=== PATIENT | female | born 1980 | race American Indian/Alaskan Native ===

== ENCOUNTER 2017-03-29 01:28 | Emergency (ER) | payer OTHER ==
[2017-03-29 01:56] VITALS: BP 128/89
[2017-03-29] MEDS ORDERED: TYLENOL ONE (01:57)
[2017-03-29] MEDS ORDERED: TYLENOL PO ONE (02:58)
--- NOTE | 2017-03-29 03:45 | Cat Scan Report ---
FINAL REPORT EXAM: CT FACIAL BONES WO CON HISTORY: facial swelling TECHNIQUE: Routine axial imaging was obtained of the facial bones without IV contrast with sagittal and coronal reconstructions. FINDINGS: There is non specific subcutaneous edema overlying the right cheek area extending to the right preseptal area. This extends along body of the right side of the mandible. There is no evidence of abscess or lymphadenopathy. The sinuses reveal mild mucosal thickening in the right maxillary and right ethmoidal air cells. There is no evidence of osteomyelitis. The orbital rims and floors appear intact. The nasal bones and zygomatic arches appear normal. The mandible appears normal. IMPRESSION: Non specific cellulitis overlying the right side of the face as described. No evidence of osteomyelitis or abscess. Patchy right maxillary and right ethmoidal sinusitis.
[2017-03-29] MEDS ORDERED: DELTASONE PO ONE (05:49)
[2017-03-29] MEDS ORDERED: TYLENOL/CODEINE PO ONE (05:49)
--- NOTE | 2017-03-29 05:49 | Emergency Department Report ---
HPI - General Chief Complaint: Dental/Oral Time Seen by Provider: 03/29/17 05:33 - [facility] HPI: The patient is a 36-year-old female who presents to ED complaining of 8/10 pain in the right side of her mouth x 3 days . Patient states that the pain started 5 days ago she was eating a pretzel and accidentally one of her upper tooth got broken and has increased in severity over the last 2 days with some facial swelling. The pain is exacerbated by eating and opening of the mouth. Patient states that it radiates towards ear and right facial cheeks. Patient describes a as a throbbing, pressure-like sensation. Patient states otherwise well and has no other complaints. Patient has had no fevers and no chills. No chest pain, no shortness of breath. No abdominal pain. No shortness of breath or recent trauma to the face. ED Past Medical Hx - Past Medical History Previous Medical History?: Yes Hx Hypertension: Yes Additional medical history: tacycardia - Surgical History Past Surgical History?: Yes Hx Cholecystectomy: Yes Additional Surgical History: hysterectomy, breast wrist - Social History Smoking Status: Former Smoker Substance Use Type: Alcohol, Marijuana - Medications Home Medications: Home Medications Medication Instructions Recorded Confirmed Last Taken Type Acetaminophen/Codeine [Tylenol 1 tab PO Q6H PRN #12 tab 03/29/17 Unknown Rx /Codeine # 3 tab] Amoxicillin/Potassium Clav 1 each PO BID #20 tablet 03/29/17 Unknown Rx [Augmentin 875-125 Tablet] Ibuprofen [Motrin] 800 mg PO Q8HR PRN #30 tablet 03/29/17 Unknown Rx ED Review of Systems ROS: Stated complaint: SWELLING LT FACE; TOOTHACHE Other details as noted in HPI Constitutional: denies: chills, fever Eyes: denies: eye pain, eye discharge, vision change ENT: dental pain. denies: ear pain, throat pain Respiratory: denies: cough, shortness of breath, wheezing Cardiovascular: denies: chest pain, palpitations Endocrine: no symptoms reported Gastrointestinal: denies: abdominal pain, nausea, diarrhea Genitourinary: denies: urgency, dysuria, discharge Musculoskeletal: denies: back pain, joint swelling, arthralgia Skin: denies: rash, lesions Neurological: denies: headache, weakness, paresthesias Psychiatric: denies: anxiety, depression Hematological/Lymphatic: denies: easy bleeding, easy bruising Physical Exam - Physical Exam Vital Signs: Vital Signs 03/29/17 03/29/17 01:49 02:00 Temperature 97.7 F Pulse Rate 85 Respiratory 18 18 Rate Blood Pressure 128/89 O2 Sat by Pulse 97 Oximetry Physical Exam: GENERAL: Alert and oriented x3, no apparent distress, Normal Gait, atraumatic. HEAD: Head is normocephalic and a-traumatic. right cheeck swelling, tender to palpation, non erythematous EYES: Extra ocular muscles are intact. Pupils are equal, round, and reactive to light and accommodation. EARS: symetrical, atraumatic, non tender, ear canal clear and moderate cerumen, tympanic membrance non inflamed. gross auditory nml bilaterally. NOSE: Nose symetrical, Nontender,Nares appeared normal. MOUTH:Mouth is well hydrated and without lesions. Tonsils nonerythematous or swollen, Uvula midline, Tongue not elevated. Mucous membranes are moist. Posterior pharynx clear, no exudate or lesions. Patent airways. partially broken tooth number 4, dental caries visualized, gums underneath tender to palpation, no gingival enlargement. NECK: Supple. Non edematous,No lymphadenopathy or thyromegaly. LUNGS: Symetrical with respiration, No wheezing, no rales or crackles, CTAB. HEART: S1, S2 present, regular rate and rhythm without murmur, no rubs, no gallops. Non tender to palpation NEUROLOGIC: The patient is cooperative with no focal neurologic deficits. Cranial nerves II through XII are grossly intact. Normal speech. , No loss of sensation, SKIN: Warm and dry, No lesions, No ulceration or induration present. ED Course Vital Signs 03/29/17 03/29/17 01:49 02:00 Temperature 97.7 F Pulse Rate 85 Respiratory 18 18 Rate Blood Pressure 128/89 O2 Sat by Pulse 97 Oximetry ED Medical Decision Making - Radiology Data Radiology results: report reviewed, image reviewed FINAL REPORT EXAM: CT FACIAL BONES WO CON HISTORY: facial swelling TECHNIQUE: Routine axial imaging was obtained of the facial bones without IV contrast with sagittal and coronal reconstructions. FINDINGS: There is non specific subcutaneous edema overlying the right cheek area extending to the right preseptal area. This extends along body of the right side of the mandible. There is no evidence of abscess or lymphadenopathy. The sinuses reveal mild mucosal thickening in the right maxillary and right ethmoidal air cells. There is no evidence of osteomyelitis. The orbital rims and floors appear intact. The nasal bones and zygomatic arches appear normal. The mandible appears normal. IMPRESSION: Non specific cellulitis overlying the right side of the face as described. No evidence of osteomyelitis or abscess. Patchy right maxillary and right ethmoidal sinusitis. Transcribed By: ANTONIO Dictated By: NELDA BENITEZ MD Electronically Authenticated By: NELDA BENITEZ MD Signed Date/Time: 03/28/17 2347 - Medical Decision Making 36-year-old female who presents with right-sided Facial pain secondary to odontogenic caries ED course: Patient received 300 mg of clindamycin, Tylenol No. [address] scan obtained, see report above, although CT scan shows mild sinusitis of the ethmoid and maxillary sinus, discussed his findings with the patient. Also stated patient on Augmentin which we'll clean this side as well as a dental infection. Odontogenic infection versus ear infection. Based upon history and physical examination, pain is a result of an infection of tooth number 4 (partially avulsed) and that the pain Pt feels on the right side of his face and towards the ear is referred pain from this infectious process. Pt has no evidence of acute impending airway compromise. At this point, patient will be discharged home on some antibiotics and pain trial, she will do well with an outpatient course of antibiotics. Follow up with the Dental Clinic as referred Vital signs are normal patient is in no acute distress. Pt had an effect uneventful ED stay Critical care attestation.: If time is entered above; I have spent that time in minutes in the direct care of this critically ill patient, excluding procedure time. ED Disposition Clinical Impression: Pain due to dental caries, Toothache Fracture, avulsion, tooth Qualifiers: Encounter type: initial encounter Fracture type: closed Qualified Code(s): S02.5XXA - Fracture of tooth (traumatic), initial encounter for closed fracture Disposition: TO HOME OR SELFCARE Is pt being admited?: No Does the pt Need Aspirin: No Condition: Stable Instructions: Toothache (ED), Dental Caries (ED), Dental Abscess (ED) Additional Instructions: Make sure to follow up with the dentistas discussed. Take all your medications as you've been prescribed. If you have any worsening symptoms or develop new symptoms please return to ED immediately. Prescriptions: Acetaminophen/Codeine [Tylenol /Codeine # 3 tab] 1 tab PO Q6H PRN #12 tab PRN Reason: Pain Amoxicillin/Potassium Clav [Augmentin 875-125 Tablet] 1 each PO BID #20 tablet Ibuprofen [Motrin] 800 mg PO Q8HR PRN #30 tablet PRN Reason: Pain Referrals: CLARA PHILLIPS MD [Primary Care Provider] - 3-5 Days [facility] [Outside] - 3-5 Days [facility] [Outside] - 3-5 Days [facility] [Outside] - 3-5 Days [facility] [Outside] - 3-5 Days Forms: Accompanied Note, Work/School Release Form(ED) Time of Disposition: 06:34
[2017-03-29] MEDS ORDERED: CLEOCIN IM ONE (05:50)
== END 2017-03-29 06:55 | disposition home or self-care (01) ==
LOC: ED 01:28
DX: S02.5XXA Fracture of tooth (traumatic), initial encounter for closed fracture (principal); K02.9 Dental caries, unspecified; I10 Essential (primary) hypertension; Z90.710 Acquired absence of both cervix and uterus; F12.10 Cannabis abuse, uncomplicated; X58.XXXA Exposure to other specified factors, initial encounter; Y93.89 Activity, other specified; Y92.89 Other specified places as the place of occurrence of the external cause; Y99.8 Other external cause status
CPT/HCPCS: 70486; 96372; 99283; J7512